=== PATIENT | male | born 1965 | race Caucasian/White ===

== ENCOUNTER 2018-09-24 16:34 | Emergency (ER) | payer BC ==
[2018-09-24 17:01] VITALS: BP 132/88
--- NOTE | 2018-09-24 17:05 | UC ---
Shoulder Pain HPI - HPI Summary HPI Summary: 53 yo male presents with RIGHT shoulder pain. He tells me that 2 days ago he was running on gravel and slipped on a patch of ice - landed directly onto his right shoulder. Since that time has had significant pain with trying to raise his right arm. At rest his pain is very mild. He has not taken anything OTC for his discomfort. Did not hit his head. Denies numbness or tingling. Says that years ago he tore something in his shoulder, but never had it repaired. - History of Current Complaint Chief Complaint: UCUpperExtremity Stated Complaint: R ARM INJURY Time Seen by Provider: 09/24/18 17:05 Hx Obtained From: Patient Onset/Duration: Sudden Onset Timing: Constant Severity Initially: Moderate Severity Currently: Severe Pain Intensity: 8 Pain Scale Used: 0-10 Numeric Aggravating Factor(s): Movement, Lifting Alleviating Factor(s): Rest - Allergies/Home Medications Allergies/Adverse Reactions: Allergies Allergy/AdvReac Type Severity Reaction Status Date / Time No Known Allergies Allergy Verified 09/24/18 17:01 Home Medications: Home Medications Atorvastatin* [Lipitor 40 MG*] 40 mg PO DAILY 09/24/18 [History Confirmed ] PMH/Surg Hx/FS Hx/Imm Hx Endocrine History: Hypothyroidism, Dyslipidemia - Surgical History Surgical History: Yes Surgery Procedure, Year, and Place: LEFT THUMB SEWED BACK ON - Family History Known Family History: Positive: Cardiac Disease, Hypertension - Social History Occupation: Employed Full-time Lives: With Family Alcohol Use: Occasionally Substance Use Type: None Smoking Status (MU): Never Smoked Tobacco Review of Systems All Other Systems Reviewed And Are Negative: Yes Constitutional: Positive: Negative Skin: Positive: Negative Respiratory: Positive: Negative Cardiovascular: Positive: Negative Neurovascular: Positive: Negative Musculoskeletal: Positive: Other: - Right shoulder pain Neurological: Positive: Negative Psychological: Positive: Negative Physical Exam - Summary Physical Exam Summary: GENERAL: NAD. WDWN. No pain distress. SKIN: No rashes, sores, lesions, or open wounds. CHEST: No accessory muscle use. Breathing comfortably and in no distress. CV: Pulses intact radial and ulnar. Cap refill <2seconds MSK: RIGHT SHOULDER: NTTP. No edema. Active flexion to ~30deg before pain stops him. Passive flexion to ~150deg before pain. Unable to perform specialized testing due to pain. [employer] Utility Worker strength intact. NEURO: Alert. Sensations intact hand and all fingers. PSYCH: Age appropriate behavior. Triage Information Reviewed: Yes Vital Signs: Initial Vital Signs Temp 98.8 F 09/24/18 16:55 Pulse 80 09/24/18 16:55 Resp 16 09/24/18 16:55 BP 132/88 09/24/18 16:55 Pulse Ox 100 09/24/18 16:55 Vital Signs Reviewed: Yes Shoulder Course/Dx - Course Course Of Treatment: XR: IMPRESSION: Unremarkable right shoulder. Suspect RTC injury. He declined pain medication or sling today. Will refer him to PT and orthopedics for further evaluation and treatment. Demonstrated pendulum exercises in the clinic tonight to practice at home to stretch his RTC muscles. - Differential Dx/Diagnosis Provider Diagnosis: Rotator cuff injury, Fall Discharge - Sign-Out/Discharge Documenting (check all that apply): Patient Departure All imaging exams completed and their final reports reviewed: Yes - Discharge Plan Condition: Stable Disposition: HOME Patient Education Materials: Rotator Cuff Injury (ED), Early Postoperative or Post Injury Shoulder Exercises (ED) Referrals: Chanda Mehta MD [Primary Care Provider] - Krzysztof Orozco MD [Medical Doctor] - If Needed Additional Instructions: If you develop a fever, shortness of breath, chest pain, new or worsening symptoms - please call your PCP or go to the ED. Your blood pressure was mildly elevated at todays visit. Please see your primary provider within 4 weeks for recheck and re-evaluation. 1) Practice the shoulder exercises demonstrated in the clinic today 2) Please schedule a follow up appointment with physical therapy and with Orthopedics for further evaluation - Billing Disposition and Condition Condition: STABLE Disposition: Home
== END 2018-09-24 17:45 | disposition home or self-care (01) ==
LOC: UCEAST 16:34
DX: S46.001A Unspecified injury of muscle(s) and tendon(s) of the rotator cuff of right shoulder, initial encounter (principal); W00.0XXA Fall on same level due to ice and snow, initial encounter; Y93.02 Activity, running; Y92.9 Unspecified place or not applicable
CPT/HCPCS: 99211; G0463

== ENCOUNTER → 2018-10-08 13:53 | Emergency (ER) | payer BC ==
[~2018-10-08 13:53] MED LIST: Morphine VIAL* 4 MG/ML VIAL (1 ml vial) ONE
[2018-10-08] MEDS: Morphine VIAL* 4 MG/ML VIAL (1 ml vial) IM ONE (14:28)
--- NOTE | 2018-10-08 15:00 | ED ---
Adult Trauma - HPI Summary HPI Summary: This patient is a 53 year old M BIB EMS presenting to [facility] with a chief complaint of finger lacerations [employer]. Patient had his 3rd and 5th digit on his left hand cut by a tlingit & haida saw. 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 He states his digits are lacerated. He describes his pain as 10/10 in severity. - History of Current Complaint Chief Complaint: EDLacSutureRecheck Stated Complaint: LT HAND LACERATION Time Seen by Provider: 10/08/18 14:23 Hx Obtained From: Patient Mechanism of Injury: Incised Onset/Duration: Started Minutes Ago, Traumatic Onset of Pain: Post Accident, Prior to Arrival Onset Severity: Severe Current Severity: Severe Pain Intensity: 10 Pain Scale Used: 0-10 Numeric Location: Extremities - Left 2nd and 5th digit. Character: Burning - 1st digit from previous injury. Associated Signs & Symptoms: Positive: Negative - Allergy/Home Medications Allergies/Adverse Reactions: Allergies Allergy/AdvReac Type Severity Reaction Status Date / Time No Known Allergies Allergy Verified 09/24/18 17:01 PMH/Surg Hx/FS Hx/Imm Hx Endocrine/Hematology History: Reports: Hx Thyroid Disease Denies: Hx Diabetes Cardiovascular History: Denies: Hx Hypertension, Hx Pacemaker/ICD History: Denies: Hx Renal Disease Sensory History: Denies: Hx Hearing Aid Psychiatric History: Denies: Hx Panic Disorder - Surgical History Surgery Procedure, Year, and Place: LEFT THUMB SEWED BACK ON Infectious Disease History: No Infectious Disease History: Denies: Traveled Outside the [place] in Last 30 Days - Family History Known Family History: Positive: Cardiac Disease, Hypertension - Social History Alcohol Use: Occasionally Substance Use Type: Reports: None Smoking Status (MU): Never Smoked Tobacco Review of Systems Negative: Fever, Chills Negative: Erythema Negative: Chest Pain Negative: Shortness Of Breath, Cough Negative: Abdominal Pain, Vomiting, Nausea Negative: dysuria, hematuria Positive: Other - Right shoulder pain from previous incident. . Negative: Myalgia, Edema Positive: Other - Laceration on 2nd and 5th digits on left hand. . Negative: Rash Neurological: Other - Neg: Dizziness All Other Systems Reviewed And Are Negative: No Physical Exam - Summary Physical Exam Summary: Constitutional: Well-developed, Well-nourished, Alert. (-) Distressed Skin: Warm, Dry. Left hand 5th digit 3 cm laceration down to bone over the distal phalanx with no distal sensation prior to digital block. Flexor tendons both lacerated and completely torn. Left hand 3rd digit 1 cm laceration on palmar aspect of distal phalanx.No foreign body in the wounds. Skin avulsion left hand 3rd digit 3 cm across. HENT: Normocephalic; Atraumatic Eyes: Conjunctiva normal Neck: Musculoskeletal ROM normal neck. (-) JVD, (-) Stridor, (-) Tracheal deviation Cardio: Rhythm regular, rate normal, Heart sounds normal; Intact distal pulses; The pedal pulses are 2+ and symmetric. Radial pulses are 2+ and symmetric. (-) Murmur Pulmonary/Chest wall: Effort normal. (-) Respiratory distress, (-) Wheezes, (-) Rales Abd: Soft, (-) epigastric tenderness, (-) Distension, (-) Guarding, (-) Rebound Musculoskeletal: (-) Edema Lymph: (-) Cervical adenopathy Neuro: Alert, Oriented x3 Psych: Mood and affect Normal Triage Information Reviewed: Yes Vital Signs On Initial Exam: Initial Vitals Temp Pulse Resp BP Pulse Ox 99.2 F 109 18 141/100 97 10/08/18 14:02 10/08/18 14:02 10/08/18 14:02 10/08/18 14:02 10/08/18 14:02 Vital Signs Reviewed: Yes Procedures - Procedure Summary Procedure Summary: Digital nerve block in 2nd, 3rd, 4th, and 5th digits. Used 3ml 1% lidocaine in each digit. - Laceration/Wound Repair 2 Location: upper extremity - Left hand 3rd digit Anesthesia: Local, 1.0%, Lido Length, Depth and Shape: 1 cm volar aspect, linear Betadine Prep?: Yes Laceration/Wound Explored: clean Closure: Single Layer Suture Type: Nylon - 4-0, Prolene Number of Sutures: 3 Layer Closure?: No 1 Location: upper extremity - left fifth digit Description: Irregular Anesthesia: Local, 1.0% Length, Depth and Shape: 5 cm, linear across the palmar and lateral aspect of the middle and distal phalanx Irrigated w/ Saline (ccs): 1,000 Laceration/Wound Explored: clean, no foreign body removed Suture Type: Nylon, Prolene - 4-0,3-0 Number of Sutures: 8 Layer Closure?: No Diagnostics - Vital Signs Vital Signs Temp Pulse Resp BP Pulse Ox 10/08/18 14:31 86 95 10/08/18 14:28 20 10/08/18 14:02 99.2 F 109 18 141/100 97 - Laboratory Lab Statement: Any lab studies that have been ordered have been reviewed, and results considered in the medical decision making process. - Radiology Left Hand XR Radiology Interpretation Completed By: Radiologist Summary of Radiographic Findings: 1.Soft tissue injuries. There is no radiographically apparent focal bony abnormality. 2. Pontential punctate foreign body overlying the index finger proximal phalanx. ED Provider has reviewed this report. Re-Evaluation - Re-Evaluation First Eval Re-Evaluation Time: 16:30 Comment: Wound procedure. Adult Trauma Course/Dx - Course Course Of Treatment: This patient is a 53 year old M BIB EMS presenting to [facility] with a chief complaint of finger lacerations IR[employer]ER. Patient had his 3rd and 5th digit on his left hand cut by a tlingit & haida saw. Physical exam found Left hand 5th digit 3 cm laceration down to bone over the distal phalanx with no distal sensation prior to digital block. Flexor tendons both lacerated and completely torn. Left hand 3rd digit 1 cm laceration on palmar aspect of distal phalanx.No foreign body in the wounds. Skin avulsion left hand 3rd digit 3 cm across. Distal block was performed on 2nd, 3rd, 4th, and 5th digits on the left hand. Lacerations on the 3rd and 5th digits on the left hand were repaired with sutures. Patient has an appointment with Dr. Arreguin in 3 days and will keep the appointment and the patient will be discharged. This plan was discussed with the patient and he is agreeable with this plan. The patient understands again loss of use of of his pinky finger, also understands that the skin is compromised and could become devitalized, this may have cosmetic and healing consequences. He is aware as is his . The laceration repair of the pinky was complicated, skin was macerated, sutures tore through on several occasions. Difficult to reapproximate the edges. Loose closure in consideration as an anti-septic. Sterile dressing applied. Let for close orthopedic hand follow- up. Return to the emergency department for any signs of infection which she is made aware. - Diagnoses Provider Diagnoses: Flexor tendon laceration of left hand with open wound, Hand laceration Discharge - Sign-Out/Discharge Documenting (check all that apply): Patient Departure - Discharge Plan Condition: Stable Disposition: HOME Prescriptions: Cephalexin CAP* [Keflex CAP*] 500 mg PO QID #20 cap HYDROcodone/ACETAMIN 5-325 MG* [[place] 5-325 TAB*] 1 tab PO Q6H PRN #15 tab MDD 4 PRN Reason: Pain - Moderate To Severe Patient Education Materials: Care For Your Stitches (ED), Laceration (ED) Referrals: Chanda Mehta MD [Primary Care Provider] - Additional Instructions: Return to ED with any new or worsening symptoms. Follow up with Primary Care Provider in 2-3 days. - Attestation Statements Document Initiated by Scribe: Yes Documenting Scribe: Elia Lawler Provider For Whom Scribe is Documenting (Include Credential): Gaston Phillips MD Scribe Attestation: Elia Chaudhary, scribed for Gaston Phillips MD on 10/08/18 at 1710. Status of Scribe Document: Ready
[2018-10-08] MEDS: Buffered Lidocaine 0.9% SYRIN* 5 ML/SYR SYRINGE INJ ONE (15:12)
[2018-10-08] MEDS: Cephalexin CAP* 500 MG PO ONE (16:06)
[2018-10-08 17:09] VITALS: BP 137/86
== END | disposition home or self-care (01) ==
LOC: ED 13:53
DX: S66.922A Laceration of unspecified muscle, fascia and tendon at wrist and hand level, left hand, initial encounter (principal); W31.2XXA Contact with powered woodworking and forming machines, initial encounter; X58.XXXA Exposure to other specified factors, initial encounter; Y92.9 Unspecified place or not applicable; E07.9 Disorder of thyroid, unspecified
CPT/HCPCS: 12002; 96372; 99282; A9270-GY; J2270

== ENCOUNTER 2018-10-26 08:35 | Day surgery (SDC) | payer BC ==
--- NOTE | 2018-10-14 16:00 | HP ---
PREOPERATIVE HISTORY AND PHYSICAL: DATE OF ADMISSION/SURGERY: 10/26/18. DATE OF OFFICE VISIT/ENCOUNTER: 10/11/18. ATTENDING SURGEON: Annabella Arreguin MD* (dictated by MARTI Martinez). PROCEDURE: Left small finger wound exploration, digital nerve repair, possible flexor tendon repair. CHIEF COMPLAINT: Left small finger injury. HISTORY OF PRESENT ILLNESS: This is a 53-year-old male who sustained injury to his left hand on 10/08/18 when he was working with a circular saw. He cut himself on the small finger and the middle finger. He was seen at [facility] Emergency Room and had some stitches placed. He denies any significant pain or numbness in the middle finger, but he has significant pain and numbness in the small finger. He has been taking Keflex and is using hydrocodone for pain management. After examination by Dr. Arreguin, he has consented to proceed with surgical intervention for the small finger. PAST MEDICAL HISTORY: 1. Hypothyroidism. 2. Hypercholesterolemia. 3. History of GERD. 4. Asthma. PAST SURGICAL HISTORY: 1. Skin biopsy. 2. Right thumb surgery. CURRENT MEDICATIONS: 1. Atorvastatin calcium 10 mg. 2. Celebrex 250 mg twice a day. 3. Levothyroxine sodium 125 mcg daily. ALLERGIES: No known drug allergies. FAMILY MEDICAL HISTORY: Noncontributory. SOCIAL HISTORY: The patient is self-employed as a contractor/frazier. He denies tobacco use and recreational drug use. He drinks alcohol on rare occasion. REVIEW OF SYSTEMS: Negative for general, cephalic, cardiovascular, respiratory , GI, and . Musculoskeletal: Positive for current complaint and shoulder pain. Integumentary: Positive for current complaint. Negative endocrine, neurologic, and hematologic symptoms. Infectious Disease: Negative for MRSA, hepatitis C, HIV. PHYSICAL EXAMINATION GENERAL: Well-developed, well-nourished 53-year-old male in no acute distress. VITAL SIGNS: Height 5 feet 6 inches, weight 180 pounds. Pulse rate 64, blood pressure 118/78. HEENT: Normocephalic, atraumatic. Pupils are equal, round and reactive to light and accommodation. Extraocular movements are intact. Throat is clear. NECK: Supple. No palpable lymph nodes. PULMONARY: Lungs are clear to auscultation bilaterally. No wheezes, rales or rhonchi. CARDIOVASCULAR: Regular rate and rhythm. S1 and S2. No murmurs, rubs or gallops. No edema. ABDOMEN: Positive bowel sounds. Soft, nontender. MUSCULOSKELETAL: On exam of his left hand, there is a laceration of the middle finger overlying the middle phalanx. It is about 1 cm in length. It is sutured. It is clean and healing nicely. No sign of infection. He has active flexion at the DIP joint and normal sensation distal to the laceration. There is a large laceration of the small finger, again at the level of the middle phalanx. He does have some active flexion distal to that, but has no sensation on either side of the tip of his finger. NEUROLOGIC: Alert and oriented x3. Cranial nerves II through XII are intact. Sensation is intact to light touch. ASSESSMENT: Left little finger laceration with definite nerve and possible tendon injury. PLAN: The patient is scheduled to undergo a left small finger wound exploration , digital nerve repair, possible flexor tendon repair with Dr. Arreguin on . He will return to the office 10 days postop for followup and suture removal. He has Melvin from the emergency room that he will plan on using for postoperative pain management and this will be refilled if needed. MARTI MARTINEZ [id number]/CPS #: [id number] MTDD
[~2018-10-26 08:35] MED LIST changes: +Buffered Lidocaine 0.9% SYRIN* 5 ML/SYR SYRINGE INTRADERM ONE; +Dexamethasone TAB* 4 MG PO ONE; +DiMENhydriNATE IV* 50 MG/ML VIAL IV PUSH PRN; +Famotidine IV* 10 MG/ML 2 ML (20 mg) IV ONE; +Lactated Ringers 1000 ML Bag* 1,000 ML IV SCH; +Morphine VIAL* 4 MG/ML VIAL (1 ml vial) IV PRN; -Morphine VIAL* 4 MG/ML VIAL (1 ml vial) ONE; +Naloxone* 0.4 MG/ML 1 ML VIAL IV PRN; +Ondansetron TAB* 4 MG PO ONE; +PROCHLORPERAZINE INJ 5 MG/ML 2 ML VIAL IV PRN; +Scopolamine 1.5 mg* PATCH TRANSDERM PRN; +fentaNYL* 50 MCG/ML 2 ML VIAL (100 MCG VIAL) IV PRN; +oxyCODONE/Acetamin 5/325 MG* TAB PO PRN
[2018-10-26] MEDS ORDERED: Famotidine IV* 10 MG/ML 2 ML (20 mg) ONE (09:00)
[2018-10-26] MEDS ORDERED: Dexamethasone TAB* 4 MG ONE (09:00)
[2018-10-26] MEDS ORDERED: Ondansetron ODT TAB* 4 MG ONE (09:00)
[2018-10-26] MEDS ORDERED: ceFAZolin 2 GM PREMIX in ORs 2 GM/50 ML BAG IVPB ONE (09:38)
[2018-10-26] MEDS ORDERED: fentaNYL* 50 MCG/ML 2 ML VIAL (100 MCG VIAL) ONE (10:25)
[2018-10-26] MEDS ORDERED: KETAMINE HCL* 50 MG/ML 10 ML VIAL ONE (10:25)
[2018-10-26] MEDS ORDERED: Midazolam* 1 MG/ML 5 ML VIAL (5 MG) ONE (10:25)
[2018-10-26] MEDS ORDERED: Bupivacaine 0.5%* 50 ML VIAL ONE (11:30)
[2018-10-26] MEDS ORDERED: Lidocaine 2% PF * 5 ML VIAL ONE (12:04)
[2018-10-26] MEDS ORDERED: Propofol* 10 MG/ML 20 ML BTL ONE (12:04)
[2018-10-26] MEDS ORDERED: Ketorolac INJ* 30 MG/ML 1 ML VIAL ONE (12:04)
[2018-10-26 13:51] VITALS: BP 118/77
--- NOTE | 2018-10-26 17:37 | OP ---
CC: Dr. Arreguin OPERATIVE REPORT: DATE OF OPERATION: 10/26/18 DATE OF : 63 SURGEON: Annabella Arreguin MD HVAC MANAGER: MARTI Martinez ANESTHESIA: General. PRE-OP DIAGNOSIS: Laceration of the left small finger. POST-OP DIAGNOSIS: Laceration of the left small finger. PROCEDURE: Left small finger wound exploration, flexor tendon repair and ulnar digital nerve repair. ESTIMATED BLOOD LOSS: Zero. TOURNIQUET TIME: About 45 minutes. INDICATION FOR PROCEDURE: Quentin is a 53-year-old man who accidentally cut his left left little fing er with a circular saw. He has decreased sensation in the finger and loss of DIP flexion motion. He presents for wound exploration, possible nerve and tendon repair. DESCRIPTION OF PROCEDURE: The patient was brought to the operating room and was given a general anes thetic and placed in supine position on the operating table with a tourniquet around his left upper a rm. The skin of his left upper extremity was prepped and draped in the usual sterile fashion. The h and and forearm were exsanguinated and the tourniquet elevated to 250 mmHg. The sutures removed and the wound was explored. The flexor tendon was actually intact; however, had some loss of continuity of the fibers due to the bleed having gone through the distal phalanx. Therefore a [employer] anchor scre w was placed in the distal phalanx and then secured to the flexor tendon that reapproximated the ulna r edge of the tendon very nicely. The wound was further explored and the radial digital nerve was in tact. The ulnar digital nerve was lacerated and this was re-approximated with 8-0 nylon suture under loupe magnification. The wound was irrigated with saline and the skin edges re-approximated with 4-0 nylon suture. The wound was dressed with Xeroform, 4x4, Webril, and a dorsal extension blocking spl int. The patient tolerated the procedure well and was brought to the recovery room in good condition . [id number]/[id number] #: [id number]
[2018-10-29] MEDS ORDERED: Scopolamine PATCH Remove* 1 NOTE MISC PATCH OFF ONE (05:52)
== END 2018-10-26 13:53 | disposition home or self-care (01) ==
LOC: OREAST 08:35
PROVIDERS: ATTEND Orthopaedic Surgery
DX: S66.127A Laceration of flexor muscle, fascia and tendon of left little finger at wrist and hand level, initial encounter (principal); S64.497A Injury of digital nerve of left little finger, initial encounter; E78.5 Hyperlipidemia, unspecified; J45.909 Unspecified asthma, uncomplicated; K21.9 Gastro-esophageal reflux disease without esophagitis; E03.9 Hypothyroidism, unspecified; W29.8XXA Contact with other powered hand tools and household machinery, initial encounter; Y92.9 Unspecified place or not applicable
CPT/HCPCS: A9270-GY; J0690; J1885; J2250; J2704; J3010; J8540

== ENCOUNTER 2018-11-10 10:35 | Day surgery (SDC) | payer BC ==
[~2018-11-10 10:35] MED LIST changes: -Buffered Lidocaine 0.9% SYRIN* 5 ML/SYR SYRINGE INTRADERM ONE; +Buffered Lidocaine 1% SYRIN* 1 ML/SYRINGE INTRADERM ONE; +Dexamethasone IV* 4 MG/ML 1 ML (4 MG) IV SLOW PU ONE; -Dexamethasone TAB* 4 MG PO ONE; -DiMENhydriNATE IV* 50 MG/ML VIAL IV PUSH PRN; -Famotidine IV* 10 MG/ML 2 ML (20 mg) IV ONE; +Famotidine TAB* 20 MG PO ONE; -Morphine VIAL* 4 MG/ML VIAL (1 ml vial) IV PRN; -Naloxone* 0.4 MG/ML 1 ML VIAL IV PRN; -Ondansetron TAB* 4 MG PO ONE; -PROCHLORPERAZINE INJ 5 MG/ML 2 ML VIAL IV PRN; -Scopolamine 1.5 mg* PATCH TRANSDERM PRN; -fentaNYL* 50 MCG/ML 2 ML VIAL (100 MCG VIAL) IV PRN; -oxyCODONE/Acetamin 5/325 MG* TAB PO PRN
[2018-11-10] MEDS ORDERED: ceFAZolin 2 GM PREMIX in ORs 2 GM/50 ML BAG IVPB ONE (11:10)
[2018-11-10] MEDS ORDERED: Famotidine TAB* 20 MG ONE (11:10)
[2018-11-10] MEDS ORDERED: Dexamethasone IV* 4 MG/ML 1 ML (4 MG) ONE (11:10)
[2018-11-10] MEDS ORDERED: Midazolam* 1 MG/ML 2 ML VIAL (2 MG) ONE (11:58)
[2018-11-10] MEDS ORDERED: Propofol* 10 MG/ML 20 ML BTL ONE (11:58)
[2018-11-10] MEDS ORDERED: fentaNYL* 50 MCG/ML 2 ML VIAL (100 MCG VIAL) ONE ×2 (11:58→15:06)
[2018-11-10] MEDS ORDERED: Rocuronium* 10 MG/ML VIAL ONE (11:59)
[2018-11-10] MEDS ORDERED: Lidocaine 2% PF * 5 ML VIAL ONE (11:59)
[2018-11-10] MEDS ORDERED: EPINEPHRINE 1 MG/ML 1 ML VIAL ONE (12:35)
[2018-11-10] MEDS ORDERED: Bupivacaine 0.5% W/EPI SDV* 30 ML VIAL ONE (12:35)
[2018-11-10] MEDS ORDERED: ROPIVACAINE 5 MG/ML 30 ML BTL (0.5%) ONE (12:44)
[2018-11-10] MEDS ORDERED: HYDROcodone/ACETAMIN 5-325 MG* 1 TAB PO PRN (14:52)
[2018-11-10] MEDS ORDERED: Naloxone* 0.4 MG/ML 1 ML VIAL IV PRN (14:52)
[2018-11-10] MEDS ORDERED: fentaNYL* 50 MCG/ML 2 ML VIAL (100 MCG VIAL) IV PRN (14:52)
[2018-11-10] MEDS ORDERED: Ketorolac INJ* 30 MG/ML 1 ML VIAL IV PRN (14:52)
[2018-11-10] MEDS ORDERED: oxyCODONE/Acetamin 5/325 MG* TAB PO PRN (14:52)
[2018-11-10] MEDS ORDERED: DiMENhydriNATE IV* 50 MG/ML VIAL IV PUSH PRN (14:52)
[2018-11-10] MEDS ORDERED: Ondansetron INJ* 2 MG/ML VIAL ONE (16:28)
[2018-11-10 18:46] VITALS: BP 127/88
--- NOTE | 2018-11-15 00:04 | OP ---
DATE OF OPERATION: 11/10/18 - [facility] DATE OF : 63 SURGEON: Krzysztof Orozco MD OBSTETRICS AND GYNECOLOGY PROFESSOR: MARTI Wolf. A physician neurosurgical physician assistant was required for the length of the procedure for assistance with positioning, instrumentation, and closure. ANESTHESIOLOGIST: Boo Pelaez MD ANESTHESIA: General anesthesia, regional interscalene block anesthesia. PRE-OP DIAGNOSES: 1. Right shoulder rotator cuff tendon tear, supraspinatus, infraspinatus, likely, subscapularis. 2. Right shoulder subacromial impingement and bursitis. 3. Right shoulder AC joint osteoarthritis. 4. Right shoulder likely superior labral tear. POST-OP DIAGNOSES: 1. Right shoulder massive rotator cuff tendon tear, supraspinatus, infraspinatus, subscapularis. 2. Right shoulder subacromial impingement and bursitis. 3. Right shoulder AC joint osteoarthritis. 4. Right shoulder superior labrum tear. OPERATIVE PROCEDURES: 1. Right shoulder arthroscopic rotator cuff tendon repair, subscapularis with a single row repair, supraspinatus and infraspinatus with a double row repair. 2. Modifier 22 for the unusual complex nature of this repair, 3 tendon tear. 3. Right shoulder arthroscopic subacromial decompression. 4. Right shoulder arthroscopic distal clavicle resection. 5. Right shoulder arthroscopic release of biceps tendon long head. ANTIBIOTICS: Ancef 2 g IV. IV FLUIDS: 1350 cc crystalloid. JHUF-IO-DUNP TIME: 150 minutes. ARTHROSCOPY FLUID UTILIZED: 28 bags with each including 3 L for a lot of 84 L. SPECIMEN: None. IMPLANTS: Mitek 4.5 mm double loaded suture anchor x1 for the subscapularis. Arthrex double loaded suture anchors with suture tape, 5.5 mm x2 for the supraspinatus, infraspinatus medial row. Arthrex swivel lock 4.75 mm suture anchor was used for the lateral row of the supraspinatus, infraspinatus repair. COMPLICATIONS: None. ESTIMATED BLOOD LOSS: Minimal. INDICATIONS FOR PROCEDURE: The patient is a 53-year-old man, right-hand dominant, self-employed frazier and construction plant operator, who presented to me with right shoulder pain after a fall on 09/22/18. MRI demonstrated retractors full thickness, full width tears of the supraspinatus and infraspinatus, as well as what looked to be a nondisplaced or minimally displaced tear of the subscapularis superior aspect. Looked like there was also tendinosis of the long head of the biceps tendon and a superior labrum tear, subacromial impingement and AC joint arthritis. The patient had seen me for shoulder pain that improved with nonoperative treatment in December 2016. The patient opted for surgery. Discussed risks and potential complications as well as long postoperative restrictions and treatment course. DESCRIPTION OF PROCEDURE: In preoperative holding the patient signed a written consent. Operative extremity was marked in preoperative holding. I discussed a release versus tenodesis of the biceps long head if treatment was needed. The patient had a slight preference for tenodesis although he left the decision to me. I told him that if the repair of his tendons was more tenuous, I preferred less fixation and work elsewhere and would just release the biceps tendon. He was fine with that. The patient underwent an interscalene regional nerve block by Dr. Pelaez in preoperative holding. The patient then was brought to the operating room, placed supine on operating room table and sedated and intubated. The patient was transferred to the lateral decubitus position with the right shoulder up. Axillary roll placed. Beanbag hardened. Bony prominences padded. Shoulder placed in 15 pounds of longitudinal traction and in the appropriate amount forward flexion and abduction. Right shoulder was prepped and draped. Surgical timeout was performed. A spinal needle was placed into the glenohumeral joint from posterior and infused with 30 mL of normal saline. A posterior glenohumeral joint portal was then established using standard technique. Diagnostic arthroscopy commenced. There was clearly a large full thickness tear of the superior rotator cuff tendons as I could see into the subacromial space. No loose bodies within glenohumeral joint. No significant wear greater than a grade 1, in any amount of the articular cartilage on the glenoid humeral head. There did appear to be a superior labrum tear and to a lesser extent some tendinosis of the long head biceps tendon. I evaluated the subscapularis with the humeral head posteriorly translated and it clearly was not affixed to some bare footprint, superior most extent of the footprint of the subscapularis. Therefore, I decided I would in fact do a subscapularis repair as well. Established an anterior glenohumeral joint portal under direct visualization. I debrided some rotator interval synovitic tissue with the arthroscopic shaver. I entered a cutting instrument and cut the long head of the biceps right off of its origin. I debrided some of the stump with an arthroscopic shaver. I addressed the subscapularis. I debrided some synovitic tissue around the superior extent of the subscapularis. I tried to leave, tissue intact between the supraspinatus and subscapularis. While this makes visualization more difficult, I believe it can increase the strength of the repairs. I placed an anterosuperior portal and a plastic cannula. I debrided the exposed footprint with an arthroscopic shaver and arthroscopic patrick. I then establish an anteroinferior portal. I placed my double loaded suture anchor into the exposed footprint. I used retrograde suture passers from Arthrex to place 2 horizontal mattress stitches in the subscapularis tendon. I placed both stitches and then tied them up. This brought subscapularis tendon nicely to bone even when I rotated the humerus or posteriorly translated it. It should be noted that I tried using a new type of Arthrex cannula during this case. It had outflow and inflow side ports that I did not like and led to a significant wastage of arthroscopic fluid. I switched back to my routine plastic arthroscopic Arthrex plastic cannulas due to this fluid wastage. I next moved to the subacromial space. I reestablished portals posterior and anterior. I established a lateral and posterior lateral portals under direct visualization. I debrided significant bursitic tissue with an arthroscopic shaver allowing good visualization of the supraspinatus and infraspinatus. These were retracted back almost to the level of the glenoid. However, the tissue appeared puente. I spent some time releasing adhesions superior and inferior to the cuff to allow improved mobilization of the tendon. I did this freeing up using a switching stick and an arthroscopic shaver. The tendon would be brought to bone. I next prepared the footprint. I debrided it with VAPR, arthroscopic shaver an arthroscopic patrick. I next performed a subacromial decompression removing the anterior curve of the undersurface of the acromion flattening out the undersurface of the acromion. I placed plastic Arthrex cannula laterally. I made hook holes in the skin superolaterally and I placed 2 Arthrex 5.5 mm anchors loaded with 2 suture tapes each. I placed these in the medial most aspect of the footprint of the supraspinatus and infraspinatus. I used an antegrade suture passer. I first used the Arthrex passer, but it was performing poorly, so I then used a [employer]hew passer. I placed all my sutures before tying 4 horizontal mattress knots. This brought tendon excellently to bone. I cleared off the lateral aspect of the footprint. I took 8 suture tapes from the medial row, placed them into a lateral row anchor, 4.75 mm swivel lock, under excellent tension. I liked the stability of the repair, looked good. I next addressed the AC joint. Debrided synovitic tissue with a VAPR and then removed 8 mm of the distal end of the clavicle with an arthroscopic patrick. Removed instruments and fluids from subacromial space. Closed skin incisions with [id number] and 12 stitches using nylon 3.0 suture. Xeroform, 4x4s, ABDs, foam tape. The patient was awakened, extubated, and brought to the PACU. DISPOSITION: The patient was provided wound care instructions. He will start physical therapy, although I will not start his passive range of motion until 6 weeks postoperative. He will be on Percocet as needed for pain control. He will see me in the office 10 to 14 days postoperative. [id number]/[facility] #: [id number] MANAS
== END 2018-11-10 18:53 | disposition home or self-care (01) ==
LOC: OR 10:35
PROVIDERS: ATTEND Orthopaedic Surgery
DX: S46.011A Strain of muscle(s) and tendon(s) of the rotator cuff of right shoulder, initial encounter (principal); S43.491A Other sprain of right shoulder joint, initial encounter; M75.41 Impingement syndrome of right shoulder; M19.011 Primary osteoarthritis, right shoulder; M75.51 Bursitis of right shoulder; W19.XXXA Unspecified fall, initial encounter; Y92.9 Unspecified place or not applicable; G89.18 Other acute postprocedural pain; E78.5 Hyperlipidemia, unspecified; J45.909 Unspecified asthma, uncomplicated; E03.9 Hypothyroidism, unspecified; K21.9 Gastro-esophageal reflux disease without esophagitis
CPT/HCPCS: A9270-GY; C1713; J0690; J1100; J2250; J2405; J2704; J2795; J3010